=== PATIENT | female | born 1955 | race Two or more races ===

== ENCOUNTER 2023-06-23 21:34 | Emergency (ER) | payer MEDICARE, OTHER ==
[~2023-06-23] VITALS: Ht 167.6 cm; Wt 77.6 kg
[2023-06-23 22:17] VITALS: TEMP 98.1
[2023-06-24 00:18] VITALS: BP 170/71; O2SAT 98
== END 2023-06-24 02:51 | disposition home or self-care (01) ==
LOC: ER 21:35
DX: I10 Essential (primary) hypertension (principal); E11.9 Type 2 diabetes mellitus without complications